=== PATIENT | male | born 2000 | race Caucasian/White ===

== ENCOUNTER 2018-08-08 14:08 | Inpatient (IN) | payer OTHER ==
[2018-08-08] MEDS ORDERED: NS 1,000 ML IV ONE ×2 (14:53→15:44)
--- NOTE | 2018-08-08 14:55 | EDPHY ---
H & P Stated Complaint: Flank pain. Sent from [place] Time Seen by Provider: 08/08/18 14:51 HPI/ROS: CHIEF COMPLAINT: Back pain, elevated creatinine HISTORY OF PRESENT ILLNESS: The patient is referred to the emergency department from the [facility]. He was evaluated there today with complaints of a several day history of back pain. He reportedly had taken 15 ibuprofen tablets on Tuesday. The patient was noted to have a creatinine of 3 and referred to the ED for further evaluation. The patient reports he has continued to make urine. He has no prior history of kidney disease. He had not been taking excessive ibuprofen prior to Tuesday. The patient takes no regular medications. He denies recent illness. He denies fever, cough or congestion. He states his back pain is moderate in nature and bilateral. REVIEW OF SYSTEMS: A comprehensive 10 point review of systems is otherwise negative aside from elements mentioned in the history of present illness. Source: Patient Exam Limitations: No limitations - Personal History Current Tetanus/Diphtheria Vaccine: Yes Current Tetanus Diphtheria and Acellular Pertussis (TDAP): Yes - Medical/Surgical History Hx Asthma: No Hx Chronic Respiratory Disease: No Hx Diabetes: No Hx Cardiac Disease: No Hx Renal Disease: No Hx Cirrhosis: No Hx Alcoholism: No Hx HIV/AIDS: No Hx Splenectomy or Spleen Trauma: No - Social History Smoking Status: Never smoked - Physical Exam Exam: General Appearance: Alert, no distress Eyes: Pupils equal and round no pallor or injection ENT, Mouth: Mucous membranes moist Respiratory: There are no retractions, lungs are clear to auscultation Cardiovascular: Regular rate and rhythm Gastrointestinal: Abdomen is soft and nontender, no masses, bowel sounds normal Back: Mild bilateral CVA tenderness Neurological: 5/5 strength noted all 4 extremities Skin: Warm and dry, no rashes Musculoskeletal: Neck is supple nontender Extremities: symmetrical, full range of motion Constitutional: Initial Vital Signs Temperature (C) 36.7 C 08/08/18 14:24 Heart Rate 54 L 08/08/18 14:24 Respiratory Rate 16 08/08/18 14:24 Blood Pressure 119/69 08/08/18 14:24 O2 Sat (%) 98 08/08/18 14:24 O2 Delivery Mode Room Air Allergies/Adverse Reactions: No Known Allergies Allergy (Unverified 08/08/18 14:24) Home Medications: Medication Instructions Recorded NK [No Known Home Meds] 08/08/18 Medical Decision Making ED Course/Re-evaluation: The patient had an IV established. He received a L of normal saline. Repeat laboratory studies have been ordered. Creatinine is in fact 2.8. Postvoid residual is 88 ml. The patient is BUN is slightly elevated. His potassium is normal. Plan will be for admission to the hospital for IV fluid rehydration. Consultation is made with Dr. Hook from the hospitalist service. Differential Diagnosis: Differential diagnosis considered includes acute renal failure, dehydration, metabolic abnormality, NSAID toxicity - Data Points Laboratory Results: Laboratory Results 08/08/18 14:55 08/08/18 14:55 08/08/18 08/08/18 08/08/18 14:55 14:55 14:26 WBC 8.81 10^3/uL 10^3/uL (3.80-9.50) RBC 5.00 10^6/uL 10^6/uL (4.40-6.38) Hgb 15.7 g/dL g/dL (13.7-17.5) Hct 44.9 % % (40.0-51.0) MCV 89.8 fL fL (81.5-99.8) MCH 31.4 pg pg (27.9-34.1) MCHC 35.0 g/dL g/dL (32.4-36.7) RDW 11.8 % % (11.5-15.2) Plt Count 180 10^3/uL 10^3/uL (150-400) MPV 10.1 fL fL (8.7-11.7) Neut % (Auto) 70.4 % % (39.3-74.2) Lymph % (Auto) 14.6 % L % (15.0-45.0) [place] % (Auto) 13.7 % H % (4.5-13.0) Eos % (Auto) 0.5 % L % (0.6-7.6) Baso % (Auto) 0.3 % % (0.3-1.7) Nucleat RBC Rel Count 0.0 % % (0.0-0.2) Absolute Neuts (auto) 6.20 10^3/uL 10^3/uL (1.70-6.50) Absolute Lymphs (auto) 1.29 10^3/uL 10^3/uL (1.00-3.00) Absolute Monos (auto) 1.21 10^3/uL H 10^3/uL (0.30-0.80) Absolute Eos (auto) 0.04 10^3/uL 10^3/uL (0.03-0.40) Absolute Basos (auto) 0.03 10^3/uL 10^3/uL (0.02-0.10) Absolute Nucleated RBC 0.00 10^3/uL 10^3/uL (0-0.01) Immature Gran % 0.5 % % (0.0-1.1) Immature Gran # 0.04 10^3/uL 10^3/uL (0.00-0.10) Sodium 136 mEq/L mEq/L (135-145) Potassium 3.6 mEq/L mEq/L (3.5-5.2) Chloride 103 mEq/L mEq/L (97-110) Carbon Dioxide 23 mEq/l mEq/l (22-31) Anion Gap 10 mEq/L mEq/L (6-14) BUN 32 mg/dL H mg/dL (7-23) Creatinine 2.8 mg/dL H mg/dL (0.7-1.3) Estimated GFR 29 Glucose 97 mg/dL mg/dL (70-100) Calcium 8.9 mg/dL mg/dL (8.5-10.4) Creatine Kinase 165 IU/L IU/L (0-224) Urine Color PALE YELLOW Urine Appearance CLEAR Urine pH 6.0 (5.0-7.5) Ur Specific [place] 1.004 (1.002-1.030) Urine Protein NEGATIVE (NEGATIVE) Urine Ketones TRACE H (NEGATIVE) Urine Blood 1+ H (NEGATIVE) Urine Nitrate NEGATIVE (NEGATIVE) Urine Bilirubin NEGATIVE (NEGATIVE) Urine Urobilinogen NEGATIVE EU EU (0.2-1.0) Ur Leukocyte Esterase NEGATIVE (NEGATIVE) Urine RBC 1-3 /hpf /hpf (0-3) Urine WBC 1-3 /hpf /hpf (0-3) Ur Epithelial Cells TRACE /lpf /lpf (NONE-1+) Urine Mucus TRACE /lpf /lpf (NONE-1+) Urine Glucose NEGATIVE (NEGATIVE) Medications Given: Discontinued Medications Sodium Chloride (Ns) 1,000 mls @ 0 mls/hr IV EDNOW ONE; Wide Open PRN Reason: Protocol Stop: 08/08/18 14:54 Last Admin: 08/08/18 14:59 Dose: 1,000 mls Departure - Departure Disposition: [facility] Inpatient Acute Clinical Impression: Acute renal failure Condition: Good
[2018-08-08 15:09] LABS: PLATELET COUNT 180 10^3/uL (150-400)
[2018-08-08 15:26] LABS: CREATINE KINASE 165 IU/L (0-224)
--- NOTE | 2018-08-08 16:09 | PDGENHP ---
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 Patient developed a headache on Tuesday. The headache was described as a pulsating frontal pressure that lasted throughout the day. It was not associated with any nausea vomiting or photo or phonophobia. Throughout the day he took 15 200 mg ibuprofen to help with the pain. Over the weekend he traveled to the [employer] in [place]. After returning home at 6:00 p.m. On Tuesday he had developed in low back ache. This was not associated with any numbness or weakness in his legs. He has not had any problems with urination. His urine color is described as "cloudy". He denies any history of previous kidney problems. 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 - Surgical History Additional surgical history: wisdom tooth extraction, adenoidectomy - Social History Smoking Status: Never smoked Alcohol Use: Occasionally Drug Use: None Review of Systems Review of Systems: ROS: 10pt was reviewed & negative except for what was stated in HPI & below Physical Exam Physical Exam: Temp Pulse Resp BP Pulse Ox 36.7 C 65 16 145/81 H 97 08/08/18 14:24 08/08/18 15:45 08/08/18 15:45 08/08/18 15:45 08/08/18 15:45 Constitutional: no apparent distress, appears nourished, not in pain Eyes: PERRL, anicteric sclera, EOMI Ears, Nose, Mouth, Throat: moist mucous membranes, hearing normal, ears appear normal, no oral mucosal ulcers Cardiovascular: regular rate and rhythym, no murmur, rub, or gallop, No edema Respiratory: no respiratory distress, no rales or rhonchi, clear to auscultation Gastrointestinal: normoactive bowel sounds, soft, non-tender abdomen, no palpable masses Genitourinary: no bladder fullness, no bladder tenderness Skin: warm, normal color, no rashes or abrasions, no fluctuance, no induration, No mottled Musculoskeletal: full muscle strength, no muscle tenderness, normal joint ROM, no joint effusions, other (moderate muscle spasm in lumbar paraspinal musculature) Neurologic: AAOx3, CN II-XII Intact, No facial droop Psychiatric: interacting appropriately, not anxious, not encephalopathic, thought process linear Lymph, Heme, Immunologic: no cervical LAD, no supraclavicular LAD Lab Data & Imaging Review 08/08/18 14:55 08/08/18 14:55 WBC 8.81 10^3/uL (3.80-9.50) 08/08/18 14:55 RBC 5.00 10^6/uL (4.40-6.38) 08/08/18 14:55 Hgb 15.7 g/dL (13.7-17.5) 08/08/18 14:55 Hct 44.9 % (40.0-51.0) 08/08/18 14:55 MCV 89.8 fL (81.5-99.8) 08/08/18 14:55 MCH 31.4 pg (27.9-34.1) 08/08/18 14:55 MCHC 35.0 g/dL (32.4-36.7) 08/08/18 14:55 RDW 11.8 % (11.5-15.2) 08/08/18 14:55 Plt Count 180 10^3/uL (150-400) 08/08/18 14:55 MPV 10.1 fL (8.7-11.7) 08/08/18 14:55 Neut % (Auto) 70.4 % (39.3-74.2) 08/08/18 14:55 Lymph % (Auto) 14.6 % (15.0-45.0) L 08/08/18 14:55 [place] % (Auto) 13.7 % (4.5-13.0) H 08/08/18 14:55 Eos % (Auto) 0.5 % (0.6-7.6) L 08/08/18 14:55 Baso % (Auto) 0.3 % (0.3-1.7) 08/08/18 14:55 Nucleat RBC Rel Count 0.0 % (0.0-0.2) 08/08/18 14:55 Absolute Neuts (auto) 6.20 10^3/uL (1.70-6.50) 08/08/18 14:55 Absolute Lymphs (auto) 1.29 10^3/uL (1.00-3.00) 08/08/18 14:55 Absolute Monos (auto) 1.21 10^3/uL (0.30-0.80) H 08/08/18 14:55 Absolute Eos (auto) 0.04 10^3/uL (0.03-0.40) 08/08/18 14:55 Absolute Basos (auto) 0.03 10^3/uL (0.02-0.10) 08/08/18 14:55 Absolute Nucleated RBC 0.00 10^3/uL (0-0.01) 08/08/18 14:55 Immature Gran % 0.5 % (0.0-1.1) 08/08/18 14:55 Immature Gran # 0.04 10^3/uL (0.00-0.10) 08/08/18 14:55 Sodium 136 mEq/L (135-145) 08/08/18 14:55 Potassium 3.6 mEq/L (3.5-5.2) 08/08/18 14:55 Chloride 103 mEq/L (97-110) 08/08/18 14:55 Carbon Dioxide 23 mEq/l (22-31) 08/08/18 14:55 Anion Gap 10 mEq/L (6-14) 08/08/18 14:55 BUN 32 mg/dL (7-23) H 08/08/18 14:55 Creatinine 2.8 mg/dL (0.7-1.3) H 08/08/18 14:55 Estimated GFR 29 08/08/18 14:55 Glucose 97 mg/dL (70-100) 08/08/18 14:55 Calcium 8.9 mg/dL (8.5-10.4) 08/08/18 14:55 Creatine Kinase 165 IU/L (0-224) 08/08/18 14:55 Urine Color PALE YELLOW 08/08/18 14:26 Urine Appearance CLEAR 08/08/18 14:26 Urine pH 6.0 (5.0-7.5) 08/08/18 14:26 Ur Specific [place] 1.004 (1.002-1.030) 08/08/18 14:26 Urine Protein NEGATIVE (NEGATIVE) 08/08/18 14:26 Urine Ketones TRACE (NEGATIVE) H 08/08/18 14:26 Urine Blood 1+ (NEGATIVE) H 08/08/18 14:26 Urine Nitrate NEGATIVE (NEGATIVE) 08/08/18 14: Urine Bilirubin NEGATIVE (NEGATIVE) 08/08/18 14:26 Urine Urobilinogen NEGATIVE EU (0.2-1.0) 08/08/18 14:26 Ur Leukocyte Esterase NEGATIVE (NEGATIVE) 08/08/18 14:26 Urine RBC 1-3 /hpf (0-3) 08/08/18 14: Urine WBC 1-3 /hpf (0-3) 08/08/18 14:26 Ur Epithelial Cells TRACE /lpf (NONE-1+) 08/08/18 14:26 Urine Mucus TRACE /lpf (NONE-1+) 08/08/18 14:26 Urine Glucose NEGATIVE (NEGATIVE) 08/08/18 14:26 Assessment & Plan Assessment: #Acute renal failure (Acute) likely d/t ibuprofen -renal ultrasound -IVF -repeat labs in AM -avoid nephrotoxins #Low Back Pain -Likely mechanical and unrelated to above -warm compress -encouraged to try some gentle stretching #Resolved Headache. He does have a history of migraine, but this headache was different then the ones he had as a child. -recommend out patient followup if headaches persist or consider further workup in hospital if symptoms return Place in observation
[2018-08-08] MEDS ORDERED: ONDANSETRON 4 MG/2 ML VIAL IVP PRN (16:17)
[2018-08-08] MEDS ORDERED: ACETAMINOPHEN 325 MG TAB PO PRN (16:17)
[2018-08-08] MEDS: NS 1,000 ML IV SCH (16:34)
[2018-08-08] MEDS: ACETAMINOPHEN 500 MG TAB PO SCH (22:03)
[2018-08-09] MEDS: NS 1,000 ML IV SCH ×3 (00:44→16:32)
--- NOTE | 2018-08-09 08:29 | HOSPPROG ---
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 Patient developed a headache on Tuesday. He took 15 200 mg of Ibuprofen. #Acute renal failure (Acute) likely d/t ibuprofen -renal ultrasound shows no hydronephrosis, no bladder outlet obstruction -creat is trending up -IVF -spoke w nephrology and they will see him #hx of drug use -has used cocaine and ecstasy in the past -his parents are at the bedside and concerned #Low Back Pain -Likely mechanical and unrelated to above -warm compress -encouraged to try some gentle stretching #Resolved Headache. He does have a history of migraine, but this headache was different then the ones he had as a child. -recommend out patient followup #plan: Dr Newby to see later today. Plan of care reviewed w the patient and his parents Subjective: Will had some nausea earlier today that resolved w an antiemetic, otherwise feeling fine. Objective: Vital Signs Temp Pulse Resp BP Pulse Ox 36.4 C 48 L 18 132/77 H 95 08/09/18 07:19 08/09/18 07:19 08/09/18 07:19 08/09/18 07:19 08/09/18 07:19 Laboratory Results 08/09/18 04:34 08/08/18 08/09/18 08/10/18 05:59 05:59 05:59 Intake Total 4844 Output Total 800 Balance 4044 - Physical Exam Constitutional: no apparent distress, appears nourished, not in pain Eyes: PERRL Ears, Nose, Mouth, Throat: hearing normal Cardiovascular: regular rate and rhythym, bradycardia Respiratory: no respiratory distress Gastrointestinal: normoactive bowel sounds Skin: warm Neurologic: AAOx3 Psychiatric: interacting appropriately ICD10 Worksheet Patient Problems: Problems Problem Status Onset Acute renal failure Acute
[2018-08-09] MEDS: ACETAMINOPHEN 500 MG TAB PO SCH ×2 (09:09→16:33)
--- NOTE | 2018-08-09 16:18 | ASMTCMCOM ---
CM Note CM Note Notes: Pt admitted to hospital for elevated creatnine levels. 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 Anticipate he will be independent at [place]. CM available for any changes. DC Plan: Independent Date Signed: 08/09/2018 04:17 PM Electronically Signed By:Nidhi Colón RN
--- NOTE | 2018-08-09 17:44 | GCON ---
[f rep st] CONSULTATION NEPHROLOGY CONSULTATION DATE OF CONSULTATION: 08/09/2018 REASON FOR CONSULTATION: Acute renal failure. HISTORY OF PRESENT ILLNESS: I have been asked to evaluate the patient regarding his acute renal fail ure. He is a 18-year-old gentleman with no past medical history. He developed a headache 4 days henry or to admission that he treated with ibuprofen. He estimates that he took fifteen 200 mg tablets in a 24 hour period. Fortunately, this was successful in treating his headache; however, subsequent to that, he did develop some abdominal and low back discomfort. He [facility] and had lab work performed, which revealed an elevated creatinine. He wa s referred here for further evaluation. His creatinine yesterday was 2.8 and he received IV fluid re suscitation overnight. This morning's creatinine was 3.1. I have subsequently been asked to evaluat e him. Renal ultrasound was negative for hydronephrosis. Urinalysis was positive for trace ketones and 1+ b lood, but negative for protein and had a negative urine sediment. Random urine sodium was 12 with a random urine creatinine of 45. His electrolytes are normal. He has no history of kidney disease or urinary tract infections as a child, his mother confirms this. He has essentially no medical problem s, but has used drugs in the past, including cocaine and ecstasy. He is adamant that his last drug u se was 2 months ago. He states if he has received approximately 2 liters of normal saline since admi ssion and is making over 1 liter per day of urine. He is feeling better, his abdominal discomfort helton s improved. He denies any actual vomiting or diarrhea. He noted some cloudy urine over the weekend, but no gross hematuria or tea-colored urine. PAST MEDICAL HISTORY: Migraines as a child. PAST SURGICAL HISTORY: 1. Tonsils. 2. [place] teeth. ALLERGIES: No known drug allergies. MEDICATIONS: Home medications: None. Current medications: Normal saline at 125 cc/hour, acetaminophen 1000 mg p.o. t.i.d., and Zofran IV as needed. SOCIAL HISTORY: He is a [place] and grew up in [place]. He is currently attending the [employer], but it does not sound as though he has a major. He is nonsmoker, does use alco hol on occasion, and has used illicit drugs in the past as outlined above. FAMILY HISTORY: No known family history of renal disease. REVIEW OF SYSTEMS: Positive for headache and abdominal and back discomfort as outlined above. Denie s any fevers, lightheadedness, or dizziness. Denies any actual change in his urinary habits, actuall y notices that his urine output was if anything, slightly high prior to admission. Aside from the po sitives noted in HPI, the remainder of the 10 organ system review is negative. PHYSICAL EXAM: GENERAL: He is in no acute distress. VITAL SIGNS: Blood pressure 127/73, heart rat e 56, oxygenation is 94% on room air. HEENT: Sclerae anicteric. Oral mucosa is moist. Oropharynx clear. NECK: Supple without JVD or lymphadenopathy. No carotid bruits. LUNGS: Clear to auscultat ion bilaterally. BACK: No CVA tenderness. HEART: Regular rate and rhythm without murmurs, gallops , rubs. ABDOMEN: Soft, nontender with normoactive bowel sounds. There is no hepatosplenomegaly, ma sses, or bruits. EXTREMITIES: There is no lower extremity edema. His feet are warm and well perfus ed. Pedal pulses are palpable bilaterally. SKIN: There is no skin rash. NEURO: He is awake, aler t, appropriate. There is no facial droop. : A Russell catheter is absent. LABORATORY/IMAGING: Sodium 138, potassium 3.6, chloride 110, CO2 20, BUN 30, creatinine 3.1, glucose 84, calcium 8.3. Yesterday his total bilirubin was 1.2, AST 24, ALT 24, alkaline phosphatase 47, al bumin 3.8, total protein 6.6. White blood cell count 8.8, hemoglobin 15.7, platelets 180. Renal ultrasound documented kidneys measuring approximately 10.5 cm bilaterally without hydronephrosi s. Urinalysis demonstrated a pH of 6.0, specific gravity of 1.004, negative protein, trace ketones, 1+ b lood with a negative urine sediment. Random urine sodium is 12. Random urine creatinine 45, calcula silverio fractional excretion of sodium is 0.5%. IMPRESSION/PLAN: Acute renal failure: This is likely acute tubular necrosis, secondary to high-dose nonsteroidal anti-inflammatory drug use. Though his urinary indices were slightly low suggestive of prerenal azotemia, I would have expected this to improve significantly with intravenous fluids overn ight. Both his history and his clinical pattern are more consistent with acute tubular necrosis. Hi s urine output is excellent, and I do expect that this will resolve spontaneously. He does not have an active urinary sediment or any proteinuria to suggest a glomerulonephritis and I will not perform serologic evaluation. There is no evidence of obstruction on his ultrasound. For now, I would dayna nue his intravenous fluids, though I will decrease his rate. If his creatinine has decreased at all tomorrow, he should be able to be safely discharged. I would expect him to recover to normal renal f unction, though I should note that his baseline creatinine is not known, but assumed to be normal. W e did discuss the hazards of high-dose nonsteroidal anti-inflammatory drug use and also the hazards o f some illicit drugs, which can also cause acute tubular necrosis. We also discussed that acute tubu lar necrosis can on occasion take some time to recover and that patients occasionally required tempor carolyn hemodialysis while awaiting recovery. I think this is unlikely to be the case with him, though i s a theoretical possibility. As previously stated, once his creatinine begins to decrease, I feel he can be safely discharged home. Thank you for the consultation. We will follow with you. /[id number]/MODL
[2018-08-10] MEDS: ACETAMINOPHEN 500 MG TAB PO PRN ×2 (01:07→08:14)
--- NOTE | 2018-08-10 05:42 | PDMN ---
Medical Necessity Medical necessity: Change to inpt as of 08/09/18 @ 16:57, meets inpt criteria per MD order and [facility] [id number], Renal Failure, Acute, 3 days. 18 y/o initially presented w/low back and abd pain and elevated creatinine, admitted w/acute renal failure likely due to Ibuprofin use. Upgraded to inpt as pt's creatinine trending up (3.1 today) despite receiving IVF since time of admission, nephrology consult: needs further IVF and monitoring of creatinine, est LOS> 2MN for ongoing management of above.
[2018-08-10 08:03] VITALS: BP 135/78
--- NOTE | 2018-08-10 10:20 | HOSPPROG ---
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 Patient developed a headache on Tuesday. He took 15 200 mg of Ibuprofen. #Acute renal failure (Acute) likely d/t ibuprofen/ATN -creat trending down #hx of drug use -drug screen clear -has used cocaine and ecstasy in the past #Low Back Pain -Likely mechanical and unrelated to above -warm compress -encouraged to try some gentle stretching #Resolved Headache. He does have a history of migraine, but this headache was different then the ones he had as a child. -recommend out patient followup #plan: dc Subjective: maki is feeling fine, no complaints. Objective: Vital Signs Temp Pulse Resp BP Pulse Ox 36.4 C 45 L 16 135/78 H 97 08/10/18 08:00 08/10/18 08:00 08/10/18 08:00 08/10/18 08:00 08/10/18 08:00 Laboratory Results 08/10/18 04:43 08/09/18 08/10/18 08/11/18 05:59 05:59 05:59 Intake Total 2908 Output Total 2175 Balance 733 - Physical Exam Constitutional: no apparent distress, appears nourished, not in pain Eyes: PERRL Ears, Nose, Mouth, Throat: hearing normal Respiratory: no respiratory distress Gastrointestinal: normoactive bowel sounds Skin: warm Musculoskeletal: full muscle strength Neurologic: AAOx3 Psychiatric: interacting appropriately ICD10 Worksheet Patient Problems: Problems Problem Status Onset Acute renal failure Acute
--- NOTE | 2018-08-10 10:33 | SOAPPROG ---
SOAP Progress Note Assessment/Plan: Assessment/Plan: CHASTITY: likey ATN in setting of a high dose NSAID use, although urine studies of prerenal azotemia. Cr peaked at 3 yesterday and today is down to 2.8 with IVFs. He is having large UOP, lytes ok. - No need for HD. - No need for IVFs. I recommended pt have really good oral fluid intake for the next several days. - Ok for discharge. - I would recommend pt have BMP checked next week and have close f/u with PCP. - I gave pt my card in case his recovery is not smooth. Subjective: No acute events overnight. Pt still has some lower R sided back pain. He is having great UOP, drinking water. Objective: Vital Signs Temp Pulse Resp BP Pulse Ox 36.4 C 45 L 16 135/78 H 97 08/10/18 08:00 08/10/18 08:00 08/10/18 08:00 08/10/18 08:00 08/10/18 08:00 Laboratory Results 08/10/18 04:43 08/09/18 08/10/18 08/11/18 05:59 05:59 05:59 Intake Total 2908 Output Total 2175 Balance 733 General: alert and oriented, no acute distress Eyes: EOMI, PERRL OP: Clear CV: RRR Resp: nonlabored respirations on RA Abd: Soft, NT/ND Ext: no edema BLE Neuro: CN II-XII Grossly intact, no asterixis Psych: cooperative, appropriate mood and affect Skin: C/D/I, no rash ICD10 Worksheet Patient Problems: Problems Problem Status Onset Acute renal failure Acute
--- NOTE | 2018-08-10 11:00 | ASMTLACE ---
[facility] Length of stay for Answers: 1 day current admission Acuity / Level of Answers: Yes Care: Did the patient have an inpatient admission? # of Emergency department Answers: 1-2 visits in the last 6 months Score: 5 Date Signed: 08/10/2018 10:59 AM Electronically Signed By:Nidhi Colón RN
--- NOTE | 2018-08-10 11:29 | GDS ---
[f rep st] DISCHARGE SUMMARY DISCHARGE DIAGNOSES: 1. Acute renal failure secondary to acute tubular necrosis. 2. History of drug use. 3. Low back pain. 4. Headache. CONSULTATION: Dr. Francisco Newby. HISTORY: Briefly, the patient is a 18-year-old student at who was transferred here after it was n oted he had an elevated creatinine. He had developed a headache on Tuesday. At that time, he took fi fteen 200 mg of ibuprofen and it was noted that his kidney function was elevated. He was sent to the hospital and hydrated. He was seen and evaluated by Nephrology who said that he has ATN and this sh ould resolve over the next week or so. The plan is for him to get a repeat chemistry at [facility]. HOSPITAL COURSE: 1. Acute renal failure, ATN. This is due to ibuprofen. Reviewed with him not to take any NSAIDs fo r the next few weeks and once his kidney function improves to make sure he reads the label and take t he right dosing. 2. History of drug use. His drug screen is clear. He has used cocaine and Ecstasy in the past. I made him aware that this is detrimental to his health. 3. Low back pain. Encouraged him to do gentle stretching and warm compresses. 4. Headache. To follow up in the outpatient setting with biofeedback or other treatment options for this. DISCHARGE CONDITION: Stable. Blood pressure is 135/78, heart rate of 45, respiratory rate is 16, O2 sat on room air 97%, temperature is 36.4 Celsius. MEDICATIONS AT DISCHARGE: Please see the EMR. DISCHARGE INSTRUCTIONS: 1. Avoid NSAIDs for the next few weeks. 2. Repeat chemistry in 1 week. /[id number]/MODL
== END 2018-08-10 11:34 | disposition home or self-care (01) | DRG 684 ==
LOC: F3E 16:42 → OBSVTOIN 08-09 16:57
PROVIDERS: ADMIT Family Medicine; ATTEND Family Medicine
DX: N17.0 Acute kidney failure with tubular necrosis (principal); T39.311A Poisoning by propionic acid derivatives, accidental (unintentional), initial encounter; M54.5 Low back pain; R51 Headache
CPT/HCPCS: 80307; G0378; G0480; J2405